=== PATIENT | female | born 1995 | race African-American/Black ===

== ENCOUNTER 2018-05-27 12:03 | Emergency (ER) | payer MEDICAID ==
[~2018-05-27] VITALS: Ht 160 cm; Wt 92.6 kg
[2018-05-27 15:11] LABS: EOSINOPHILS % 2.9 % (0.0-5.0); HEMATOCRIT. 36.5 % (36.0-48.0); HEMOGLOBIN. 12.1 g/dL (12.0-16.0); MEAN CORPUSCULAR HEMOGLOBIN 25.4 pg (28.0-32.0); MEAN CORPUSCULAR VOLUME 76.2 fL (81.0-99.0); MEAN PLATELET VOLUME 7.7 fl (7.4-10.4); MONOCYTES % 4.6 % (2.0-8.0); NEUTROPHILS % 56.5 % (40.0-76.0); PLATELET 395 x1000/uL (130-400); RED BLOOD CELL COUNT 4.79 mill/uL (4.2-5.4); RED CELL DISTRIBUTION WIDTH 18.1 % (11.6-14.6)
[2018-05-27 15:15] LABS: CHLORIDE 108 mEq/L (98-107)
[2018-05-27 15:20] LABS: CLARITY URINE TURBID (CLEAR); COLOR URINE YELLOW (YELLOW); KETONES URINE NEGATIVE (NEGATIVE); LEUKOCYTE ESTERASE URINE 2+ (NEGATIVE); NITRITE URINE NEGATIVE (NEGATIVE); OCCULT BLOOD URINE 3+ (NEGATIVE); PROTEIN URINE TRACE (NEGATIVE); SPECIFIC GRAVITY URINE 1.019 (1.005-1.030); UROBILINOGEN URINE 0.2 E.U./dL (0.2-1.0)
[2018-05-27 15:26] LABS: B-HCG QUANTITATIVE < 1 mIU/mL (<3)
[2018-05-27 16:30] VITALS: BP 130/83
== END 2018-05-27 17:04 | disposition home or self-care (01) ==
LOC: ER 12:03
DX: N39.0 Urinary tract infection, site not specified (principal); F12.10 Cannabis abuse, uncomplicated; R03.0 Elevated blood-pressure reading, without diagnosis of hypertension; Z98.890 Other specified postprocedural states; Z97.5 Presence of (intrauterine) contraceptive device
CPT/HCPCS: 36415; 76830; 76856; 80048; 81003; 81025; 84702; 85025; 86850; 86900; 99285

== ENCOUNTER 2022-03-10 10:09 | Emergency (ER) | payer MEDICAID ==
[~2022-03-10] VITALS: Ht 165.1 cm; Wt 82.0 kg
[2022-03-10] MEDS ORDERED: ACETAMINOPHEN 325MG TABLET PO STA (10:54)
[2022-03-10] MEDS ORDERED: IBUPROFEN 600MG TABLET PO STA (10:54)
[2022-03-10 11:05] VITALS: BP 120/77
[2022-03-10] MEDS ORDERED: BO1 TP (13:24)
[2022-03-10] MEDS ORDERED: ACET-2708 MT (13:24)
[2022-03-10] MEDS ORDERED: IBUP-2028 MT (13:24)
== END 2022-03-10 13:38 | disposition home or self-care (01) ==
LOC: ER 10:24
DX: S00.83XA Contusion of other part of head, initial encounter (principal); S83.8X1A Sprain of other specified parts of right knee, initial encounter; S83.8X2A Sprain of other specified parts of left knee, initial encounter; F12.10 Cannabis abuse, uncomplicated; V86.59XA Driver of other special all-terrain or other off-road motor vehicle injured in nontraffic accident, initial encounter; Y93.89 Activity, other specified; Y92.89 Other specified places as the place of occurrence of the external cause
CPT/HCPCS: 70486; 71045; 72170; 73562; 99284

== ENCOUNTER 2022-06-20 12:44 | Emergency (ER) | payer MEDICAID ==
[~2022-06-20] VITALS: Ht 167.6 cm; Wt 80.0 kg
[~2022-06-20 12:44] MED LIST: ACET-2708 MT; BO1 TP; IBUP-2028 MT
[2022-06-20 12:59] VITALS: BP 152/108
[2022-06-20] MEDS ORDERED: METOCLOPRAMIDE HCL 10MG/2ML VIAL IV ONE (18:00)
[2022-06-20] MEDS ORDERED: SODIUM CHLORIDE 0.9% 1,000 ML IV ONE (18:00)
== END 2022-06-20 22:30 | disposition home or self-care (01) ==
LOC: ER 13:27
DX: G43.909 Migraine, unspecified, not intractable, without status migrainosus (principal); F12.10 Cannabis abuse, uncomplicated
CPT/HCPCS: 70450; 81025; 96361; 96374; 99284; J2765; J7030; Z7610